=== PATIENT | female | born 1980 ===

== ENCOUNTER 2017-05-27 10:30 | Emergency (ER) | payer OTHER ==
[2017-05-27 10:30] VITALS: BMI 26.4
[2017-05-27 10:38] VITALS: TEMP 98.4; O2SAT 100
[2017-05-27] MEDS ORDERED: Sodium Chloride 0.9% 1,000 ML IV STA (11:04)
[2017-05-27 11:48] LABS: BASO % 0.4 % (0.0-2.0); EOS # 0.1 K/uL (0.0-0.7); EOS % 1.9 % (0.0-4.0); HEMOGLOBIN 12.8 g/dL (12.0-16.0); LYMPH # 1.7 K/uL (1.0-4.3); LYMPH % 33.3 % (20.0-40.0); MEAN CELL VOLUME 94.3 fl (81.0-99.0); MEAN CORPUSCULAR HGB CONC 33.9 g/dL (33.0-37.0); MEAN PLATELET VOLUME 8.5 fl (7.2-11.7); MONO # 0.4 K/uL (0.0-0.8); MONO % 8.6 % (0.0-10.0); NEUT # 2.8 K/uL (1.8-7.0); NEUT % 55.8 % (50.0-75.0); NRBC % 0.1 % (0.0-0.0); RED CELL DISTRIBUTION WIDTH 12.6 % (11.5-14.5)
--- NOTE | 2017-05-27 11:54 | ED PDOC ---
HPI: Female Pain Time Seen by Provider: 05/27/17 10:35 Chief Complaint (Nursing): Female Genitourinary Chief Complaint (Provider): Vaginal bleeding for 17 days History Per: Patient History/Exam Limitations: no limitations Onset/Duration Of Symptoms: Days Current Symptoms Are (Timing): Still Present Severity: Mild (Suprapubic pain, cramping) Quality Of Discomfort: Dull Associated Symptoms: denies: Fever, Chills Alleviating Factors: None Additional Complaint(s): 37 yo female with no medical problems presents with vaginal bleeding for 17 days. Pt states the bleeding is not a lot but everyday. Pt reports feeling intermittent dizziness but none now. Pt was seen in [facility] ER a few days ago and labs reviewed (H/H nromal). Pt states she went to the clinic today to make an appointment and was told to come to the ER. PT reports normal menstruation previously. Serum negative in [facility]. Past Medical History Reviewed: Historical Data, Nursing Documentation, Vital Signs Vital Signs: Last Vital Signs Temp 98.4 F 05/27/17 10:34 Pulse 66 05/27/17 10:34 Resp 19 05/27/17 10:34 BP 104/55 L 05/27/17 10:34 Pulse Ox 100 05/27/17 10:34 - Medical History PMH: No Chronic Diseases - Surgical History Surgical History: No Surg Hx - Family History Family History: States: Unknown Family Hx - Living Arrangements Living Arrangements: With Family - Social History Current smoker - smoking cessation education provided: No - Home Medications Home Medications: Ambulatory Orders Medication Instructions Recorded Ibuprofen [Motrin Tab] 600 mg PO Q8 PRN #30 tab 05/19/17 - Allergies Allergies/Adverse Reactions: Allergies Allergy/AdvReac Type Severity Reaction Status Date / Time No Known Allergies Allergy Verified 05/27/17 10:33 Review of Systems ROS Statement: Except As Marked, All Systems Reviewed And Found Negative Constitutional: Negative for: Fever, Chills Genitourinary Female: Positive for: Vaginal Bleeding Physical Exam - Reviewed Nursing Documentation Reviewed: Yes Vital Signs Reviewed: Yes - Physical Exam Appears: Positive for: Well, Non-toxic, No Acute Distress Head Exam: Positive for: ATRAUMATIC, NORMAL INSPECTION, NORMOCEPHALIC Skin: Positive for: Normal Color, Warm, DRY Eye Exam: Positive for: Normal appearance ENT: Positive for: Normal ENT Inspection Neck: Positive for: Normal, Painless ROM Cardiovascular/Chest: Positive for: Regular Rate, Rhythm Respiratory: Positive for: CNT, Normal Breath Sounds Gastrointestinal/Abdominal: Positive for: Normal Exam, Bowel Sounds, Soft. Negative for: Tenderness Back: Positive for: Normal Inspection Extremity: Positive for: Normal ROM Neurologic/Psych: Positive for: Alert, Oriented - Laboratory Results Result Diagrams: 05/27/17 11:23 05/27/17 11:23 - ECG O2 Sat by Pulse Oximetry: 100 Disposition - Clinical Impression Clinical Impression: Metrorrhagia, DUB (dysfunctional uterine bleeding) - Patient ED Disposition Is Patient to be Admitted: No Counseled Patient/Family Regarding: Diagnosis, Need For Followup - Disposition [facility] Disposition: Routine/Home Disposition Time: 13:33 Condition: GOOD Additional Instructions: Please follow-up with the [facility]. Instructions: Heavy Periods Forms: [facility] (Georgian) Print Language: LUXEMBOURGER
[2017-05-27 12:01] LABS: ALB/GLOB RATIO 1.1 (1.0-2.1); ALBUMIN 3.7 g/dL (3.5-5.0); ALT/SGPT 37 U/L (9-52); AST/SGOT 31 U/L (14-36); BLOOD UREA NITROGEN 13 mg/dl (7-17); CALCIUM 8.7 mg/dL (8.4-10.2); GFR AFRICAN-AMERICAN > 60; GFR NON-AFRICAN AMERICAN > 60
--- NOTE | 2017-05-27 13:22 | US ---
HISTORY: suprapubic pain, vaginal bleeding x 17 days COMPARISON: None available. TECHNIQUE: Transabdominal pelvic ultrasound was performed. FINDINGS: UTERUS: Measures 10.7 x 5.3 x 4.0 cm. Anteverted, normal in size and appearance. No fibroid or other mass lesion seen. ENDOMETRIUM: Measures 3.0 mm in diameter. Unremarkable. CERVIX: There are nabothian cysts in the cervix. RIGHT OVARY: Measures 2.2 x 1.0 x 1.8 cm. No solid mass. Normal flow. LEFT OVARY: Measures 2.4 x 1.6 x 1.5 cm. No solid mass. Normal flow. FREE FLUID: No significant free fluid noted. OTHER FINDINGS: None. IMPRESSION: Normal pelvic ultrasound.
[2017-05-27 16:39] VITALS: BP 112/60; PULSE 70; RESP 18
== END 2017-05-27 14:00 | disposition home or self-care (01) ==
LOC: H.ER 10:30
DX: N92.1 Excessive and frequent menstruation with irregular cycle (principal)
CPT/HCPCS: 76856; 80053; 81025; 85025; 86850; 86900; 99284; J7040